=== PATIENT | male | born 1945 | race Caucasian/White ===

== ENCOUNTER 2018-04-07 09:43 | Emergency (ER) | payer OTHER ==
[2018-04-07] MEDS ORDERED: MORPHINE SULFATE INJ 10 MG/ML VIAL IV ONE (10:05)
--- NOTE | 2018-04-07 10:21 | ED.PDOC ---
History of Present Illness - General Chief Complaint: GI Problem Stated Complaint: severe heartburn Time Seen by Provider: 04/07/18 10:02 Information Source: patient, family Exam Limitations: no limitations - History of Present Illness Initial Comments: patient comes in today with severe chest pain and retching since yesterday at 3 PM. Patient stated that he took a bite of brisket and felt like it had gotten stuck and then passed further distally into his stomach area. However, he could not stop with nausea and severe chest pain. The pain is a 10 out of 10, burning, and in the substernal area. Patient states he cannot pass anything without having to retch and throw up clear fluid and occasional bile. The only thing that has relieved the chest pain is when he is able to have a small amount of bile-like emesis. Patient has some shortness of breath associated with the chest pain but no cough or wheezing. Patient denies any abdominal pain. He has had this happen once before about 6 months ago but that passed on its own after about 15 minutes. Patient has been uppermost the night trying to retch up whenever it is it's causing the discomfort. Patient has no cardiac history but does have hypertension and gout. Patient has been able to pass Tums , water, or any food without severe discomfort and pain. patient has noted several month history of change in his taste. He states even when eating sweet fruit still have a bitter or metallic taste in his mouth. He does not normally have a difficult time swallowing and he denies any chronic reflux. Patient does often have episodes of hiccups that are concerning to his . Patient does drink daily 6 beers and 2 drinks of hard alcohol a day. Abdominal Pain Onset Location: other - substernal Pain Radiation: no radiation Quality: severe, aching, burning Timing/Duration: 7-24 hours Improving Factors: other - emesis of small amounts of bile Worsening Factors: eating Associated Symptoms: heartburn, nausea/vomiting Review of Systems - Review of Systems Constitutional: States: no symptoms reported. Denies: chills, diaphoresis, fever EENTM: States: no symptoms reported. Denies: eye pain, blurred vision, tearing , ear pain, ear discharge, nose pain, throat pain Respiratory: States: short of breath. Denies: orthopnea, wheezing Cardiology: States: chest pain. Denies: edema, palpitations, syncope Gastrointestinal/Abdominal: States: nausea, vomiting. Denies: abdominal pain, constipation, diarrhea Genitourinary: States: no symptoms reported Musculoskeletal: States: no symptoms reported Skin: States: no symptoms reported Past Medical History (General) - Patient Medical History Hx Stroke: No Hx of COPD: No Hx Congestive Heart Failure: No Hx Hypertension: Yes Hx Diabetes: No Surgical History: appendectomy - Social History Hx Alcohol Use: Yes Family Medical History - Family History Mother Family History: No Known Physical Exam - Physical Exam General Appearance: Anxious, Obvious distress Eyes, Ears, Nose, Throat Exam: PERRL/EOMI, normal ENT inspection, TMs normal, pharynx normal Neck: non-tender, full range of motion, supple, normal inspection Respiratory: chest non-tender, lungs clear, normal breath sounds, no respiratory distress Cardiovascular/Chest: normal peripheral pulses, regular rate, rhythm, no edema, no gallop, no JVD, no murmur, other - no subcutaneous ephysema Peripheral Pulses: No deficit Gastrointestinal/Abdominal: normal bowel sounds, non tender, soft, no organomegaly, no pulsatile mass Neurologic: alert, oriented x 3 Skin Exam: normal color Progress - Progress Progress: 04/07/18 10:52 04/07/18 10:12 CARDIAC ENZYME GROUP Stat COMPLETE METABOLIC PROFILE Stat 04/07/18 10:15 EKG STAT 04/07/18 10:51 BOLUS Sodium Chloride 0.9% 1000ML [Ns 1000 ml] 1,000 ml IVS ONCE Laboratory Results WBC 6.6 K/mm3 (4.8-10.8) 04/07/18 10:05 RBC 5.03 M/mm3 (4.70-6.10) 04/07/18 10:05 Hgb 17.6 gm/dL (14.0-18.0) 04/07/18 10:05 Hct 50.1 % (42.0-52.0) 04/07/18 10:05 MCV 99.6 fl (80.0-94.0) H 04/07/18 10:05 MCH 35.1 pg (27.0-31.0) H 04/07/18 10:05 MCHC 35.2 g/dL (33.0-37.0) 04/07/18 10:05 RDW 13.4 % (11.5-14.5) 04/07/18 10:05 Plt Count 183 K/mm3 (130-400) 04/07/18 10:05 MPV 7.9 fl (7.40-10.4) 04/07/18 10:05 Absolute Neuts (auto) 4.40 K/uL (1.8-6.8) 04/07/18 10:05 Absolute Lymphs (auto) 1.40 K/uL (1.0-3.4) 04/07/18 10:05 Absolute Monos (auto) 0.80 K/uL (0.2-0.8) 04/07/18 10:05 Absolute Eos (auto) 0.00 K/uL (0.0-0.4) 04/07/18 10:05 Absolute Basos (auto) 0.10 K/uL (0.0-0.1) 04/07/18 10:05 Neutrophils % 65.7 % (42.0-78.0) 04/07/18 10:05 Lymphocytes % 21.5 % (20.0-50.0) 04/07/18 10:05 Monocytes % 11.5 % (2.0-9.0) H 04/07/18 10:05 Eosinophils % 0.5 % (1.0-5.0) L 04/07/18 10:05 Basophils % 0.8 % (0.0-2.0) 04/07/18 10:05 PT 11.8 SECONDS (9.4-12.5) 04/07/18 10:12 INR 1.020 04/07/18 10:12 PTT (SP) 29.2 SECONDS (25.1-36.5) 04/07/18 10:12 Sodium 142 mmol/L (135-145) 04/07/18 10:12 Potassium 3.4 mmol/L (3.6-5.0) L 04/07/18 10:12 Chloride 106 mmol/L (101-111) 04/07/18 10:12 Carbon Dioxide 27 mmol/L (21-31) 04/07/18 10:12 Anion Gap 12.4 (12-18) 04/07/18 10:12 BUN 10 mg/dL (7-18) 04/07/18 10:12 Creatinine 0.74 mg/dL (0.6-1.3) 04/07/18 10:12 BUN/Creatinine Ratio 13.5 (10-20) 04/07/18 10:12 Random Glucose 116 mg/dL (70-105) H 04/07/18 10:12 Serum Osmolality 283.1 mOsm/L (275-295) 04/07/18 10:12 Calcium 9.6 mg/dL (8.4-10.2) 04/07/18 10:12 Total Bilirubin 1.6 mg/dL (0.2-1.0) H 04/07/18 10:12 AST 53 IU/L (10-42) H 04/07/18 10:12 ALT 49 IU/L (10-60) 04/07/18 10:12 Alkaline Phosphatase 64 IU/L (42-121) 04/07/18 10:12 Creatine Kinase 99 IU/L (38-174) 04/07/18 10:12 Serum Total Protein 8.1 gm/dL (6.4-8.2) 04/07/18 10:12 Albumin 4.4 g/dl (3.2-5.5) 04/07/18 10:12 Globulin 3.7 gm/dL (2.3-3.5) H 04/07/18 10:12 Albumin/Globulin Ratio 1.2 (1.1-1.9) 04/07/18 10:12 Patient Name: HECTOR SEXTON Gender: Male Date of : 1945 Referring Physician: ROLAND RUSH Organization: [facility] Accession Number: [id number] Requested Date: April 07, 2018 10:05 Report Status: Final Requested Procedure: 1 Procedure Description: Chest w/o Contrast Modality: CT Findings Reporting MD: J Carlos Chung Fellow MD: Not available Dictation Time: Yarn Inspector: Not available Transformer Molder Date: EXAM DESCRIPTION: Chest w/o Contrast CLINICAL HISTORY: 72 years, Male, chest pain after eating/?esophageal tear rupture COMPARISON: None TECHNIQUE: Thin-section noncontrast axial CT images are obtained according to our protocol. Reconstructed MPR images are created and reviewed as well. FINDINGS: Lungs: No consolidating pulmonary infiltrate or groundglass infiltrate. Tiny nodule in the left lower lobe measures 4 mm and may be a small granuloma. Follow-up as per recommendations below. Mediastinum: Lymph nodes are normal in size. Filled distended esophagus is seen. No mucosal thickening or esophageal mass is identified. Correlate with endoscopic findings. No mediastinal fluid collection or hematoma to suggest esophageal rupture. Slight increased density of the mucosal surface of the esophagus is seen in the lower portion just above the GE junction. No definite foreign body. Normal vascular contours. Heart size is normal with no pericardial effusion. Chest wall/axilla: No mass or adenopathy. Lower neck/supraclavicular: No mass or adenopathy. Upper abdomen: Diffuse hepatic steatosis is present. Otherwise unremarkable upper abdominal viscera. IMPRESSION: Fluid-filled esophagus. No obstructing lesion is identified. Correlate with endoscopic findings if indicated. Left lower lobe nodule measures 4 mm. Follow-up as per recommendations below. 2017 Fleischner Society Recommendations for Single Solid Lung Nodule Follow-Up based on size (average of long- and short-axis [facility] [address] [place] [address], [address] [place] [address] T [phone] F [phone] [email or web address] - Report exported on Apr 07, 2018 10:53:28 -[id number] - Page 2 of 2 diameters) <6 mm Low-Risk Patient: No routine follow-up <6 mm High-Risk Patient: Optional CT at 12 months This exam was performed according to our departmental dose-optimization program, which includes automated exposure control, adjustment of the mA and/or kV according to patient size and/or use of iterative reconstruction techn discussed results with patient. he was aware of the granuloma and it has been monitored already with no change. Will give IV glucagon and IV fluid at this time to try and pass suspected food bolus. 04/07/18 11:47 Patient did not improve with IV medication. We have called [facility] for transfer for GI consult Departure - Departure Clinical Impression: Bolus impaction of digestive tract Disposition: Transfer to Hospital Condition: Fair Departure Forms: ED Discharge - Pt. Copy, Patient Portal Self Enrollment Transfer to Outside Facility - Transfer Information Accepting Provider:: Dr. Olivera Accepting Facility: [facility] Reason for Transfer: required specialist not available
--- NOTE | 2018-04-07 10:33 | RAD ---
EXAM DESCRIPTION: Chest,1 View CLINICAL HISTORY: 72 years Male, chest pain COMPARISON: None. TECHNIQUE: AP portable chest. FINDINGS: Heart size is normal with normal pulmonary vascularity. No consolidating infiltrate. No pulmonary mass or worrisome nodule. No pneumothorax or pleural effusion. Bones are unremarkable. IMPRESSION: No acute process is identified in the chest. Electronically signed by: J Carlos Chung MD 04/07/2018 10:31 AM CDT
--- NOTE | 2018-04-07 10:44 | CT ---
EXAM DESCRIPTION: Chest w/o Contrast CLINICAL HISTORY: 72 years, Male, chest pain after eating/?esophageal tear rupture COMPARISON: None TECHNIQUE: Thin-section noncontrast axial CT images are obtained according to our protocol. Reconstructed MPR images are created and reviewed as well. FINDINGS: Lungs: No consolidating pulmonary infiltrate or groundglass infiltrate. Tiny nodule in the left lower lobe measures 4 mm and may be a small granuloma. Follow-up as per recommendations below. Mediastinum: Lymph nodes are normal in size. Filled distended esophagus is seen. No mucosal thickening or esophageal mass is identified. Correlate with endoscopic findings. No mediastinal fluid collection or hematoma to suggest esophageal rupture. Slight increased density of the mucosal surface of the esophagus is seen in the lower portion just above the GE junction. No definite foreign body. Normal vascular contours. Heart size is normal with no pericardial effusion. Chest wall/axilla: No mass or adenopathy. Lower neck/supraclavicular: No mass or adenopathy. Upper abdomen: Diffuse hepatic steatosis is present. Otherwise unremarkable upper abdominal viscera. IMPRESSION: Fluid-filled esophagus. No obstructing lesion is identified. Correlate with endoscopic findings if indicated. Left lower lobe nodule measures 4 mm. Follow-up as per recommendations below. 2017 Fleischner Society Recommendations for Single Solid Lung Nodule Follow-Up based on size (average of long- and short-axis diameters) <6 mm Low-Risk Patient: No routine follow-up <6 mm High-Risk Patient: Optional CT at 12 months This exam was performed according to our departmental dose-optimization program, which includes automated exposure control, adjustment of the mA and/or kV according to patient size and/or use of iterative reconstruction technique. Electronically signed by: J Carlos Chung MD 04/07/2018 10:42 AM CDT
[2018-04-07] MEDS ORDERED: GLUCAGON INJ 1 MG VIAL IV ONE (10:51)
[2018-04-07] MEDS ORDERED: SODIUM CHLORIDE 0.9% 1000ML 1,000 ML IVS ONE (10:51)
[2018-04-07 12:17] VITALS: BP 175/83; TEMP 97.6; O2SAT 95
== END 2018-04-07 12:16 | disposition short-term general hospital (02) ==
LOC: ER 09:43
DX: T17.920A Food in respiratory tract, part unspecified causing asphyxiation, initial encounter (principal); I10 Essential (primary) hypertension; M10.9 Gout, unspecified; X58.XXXA Exposure to other specified factors, initial encounter
CPT/HCPCS: 36415; 71045; 71250; 80053; 82550; 82553; 84484; 85025; 85610; 85730; 93005; J1610; J2270; J7030

== ENCOUNTER 2019-10-01 11:04 | Emergency (ER) | payer OTHER ==
[2019-10-01 11:24] VITALS: TEMP 97.7
[2019-10-01] MEDS ORDERED: ONDANSETRON INJ 4 MG/2 ML VIAL IV ONE (11:34)
[2019-10-01] MEDS ORDERED: SODIUM CHLORIDE 0.9% (FLUSH) 10 ML SYG IV PRN (11:34)
[2019-10-01] MEDS ORDERED: SODIUM CHLORIDE 0.9% 1000ML 1,000 ML IVS PRN (11:34)
[2019-10-01] MEDS ORDERED: MORPHINE SULFATE INJ 10 MG/ML VIAL IV ONE (11:37)
--- NOTE | 2019-10-01 11:39 | ED.PDOC ---
History of Present Illness - General Chief Complaint: Abdominal Pain Stated Complaint: LLQ abd pain Time Seen by Provider: 10/01/19 11:09 - History of Present Illness Initial Comments: 74 male with history of diverticulitis, presents with progressive left lower quadrant abdominal pain for 2 days, no vomiting, no bowel movement today. Pain is similar to previous infection. He has never had surgery, no recent colonoscopy, although diverticulosis seen on colonoscopy approximately 5 years ago. Allergies/Adverse Reactions: Allergies NO KNOWN ALLERGY Allergy (Verified 02/21/19 10:19) Home Medications: Ambulatory Orders Allopurinol [Zyloprim] 100 mg PO BID 02/21/19 Amlodipine Besylate 10 mg PO DAILY 10/01/19 Amoxicillin & Pot Clavulanate [Augmentin Tab] 875 mg PO BID #20 tab 10/01/19 Docusate Sodium [Colace Cap] 100 mg PO BID #20 cap 10/01/19 Lisinopril 10 mg PO BID 10/01/19 Ondansetron Odt [Zofran ODT] 4 mg PO Q6H PRN #15 tab 10/01/19 Polyethylene Glycol 3350 [Miralax] 17 gm PO BID 20 Days #20 pckt 10/01/19 Tamsulosin [Flomax] 0.4 mg PO QD 10/01/19 Tramadol HCl [Ultram] 50 mg PO Q6HR PRN #20 tab 10/01/19 metroNIDAZOLE [Flagyl] 500 mg PO BID #20 tab 10/01/19 Review of Systems - Review of Systems Review of Systems: 10/01/19 12:22 General: Denies generalized weakness, fever, arthralgia/myalgia HEENT: Denies sore throat, rhinorrhea Cardiovascular: Denies chest pain, palpitations Respiratory: Denies SOB, cough Gastrointestinal: has abdominal pain, no vomiting, diarrhea : Denies dysuria, frequency Musculoskeletal: Denies extremity pain, extremity swelling Integument: Denies rash, itching Neuro: Denies focal weakness or numbness Psych: Denies depression, hallucinations. Past Medical History (General) - Patient Medical History Hx Stroke: No Hx of COPD: No Hx Cardiac Disorders: No Hx Congestive Heart Failure: No Hx Hypertension: Yes Hx Diabetes: No Hx Cancer: No Surgical History: appendectomy - Vaccination History Hx Tetanus, Diphtheria Vaccination: Yes Hx Influenza Vaccination: No Hx Pneumococcal Vaccination: Yes - Social History Hx Tobacco Use: Yes Hx Alcohol Use: Yes Hx Substance Use: No Hx Substance Use Treatment: No Hx Depression: No - Female History Patient : No Family Medical History - Family History Mother Family History: No Known Physical Exam - Physical Exam Comments: General Appearance: Patient is awake and alert. Skin: Warm and dry. No diaphoresis. No rash or other lesions. Head: Normocephalic/atraumatic. Eyes: PERRL, lids, conjunctiva and sclera unremarkable. EOMI intact. ENT: No nasal discharge. Oropharynx. Without erythema, exudate, lesions. Moist mucous membranes. Neck: Supple. No LAD. No tenderness. No JVD noted. Respiratory: Normal rate and effort. Breath sounds clear bilaterally. Cardiovascular: Regular rate. Heart sounds normal. No murmur. GI: Abdomen soft, non-distended and tender in LLQ. No rebound/guarding. Bowel sounds normal. Back: No tenderness Musculoskeletal: Extremities- Normal range of motion. No effusion, cyanosis, edema. Neurological: Alert. No facial palsy. Speech clear. Gag intact. No motor deficit, str symmetric. No sensory deficit. Progress - Progress Progress: 10/01/19 14:19 Patient feels better after meds, iv abx given in ED.. VS, exam remain reassuring. Labs are without acute abnormality, imaging w divertic, no abscess/ perf. I have discussed findings, diff dx, plan of care, need for follow-up, and reasons to return to the ED. Safety Stop (Diagnostic Time-Out): Tachycardia: No Diagnostic Studies: Reviewed Diagnostic Certainty: moderate Patient/family feels safe with discharge: Yes - Results/Orders Results/Orders: Vital Signs - 24 hr 10/01/19 11:16 Temperature 97.7 F Pulse Rate [ 93 H Left Brachial] Respiratory 16 Rate Blood Pressure 135/74 [Left Arm] O2 Sat by Pulse 98 Oximetry 10/01/19 11:34 IV Care:Saline Lock per Protoc QSHIFT Sodium Chloride 0.9% (Flush) [Saline Flush Syringe] 10 ml IV PRN PRN Sodium Chloride 0.9% 1000ML [Ns 1000 ml] 1,000 ml IVS .QD URINALYSIS Stat 10/01/19 11:35 Abdomen/Pelvis w/Contrast [CT] Stat 10/01/19 11:36 Hold Metformin x 48Hrs [id number] Laboratory Results WBC 10.3 K/mm3 (4.8-10.8) 10/01/19 11:34 RBC 5.41 M/mm3 (4.70-6.10) 10/01/19 11:34 Hgb 18.8 gm/dL (14.0-18.0) H 10/01/19 11:34 Hct 53.9 % (42.0-52.0) H 10/01/19 11:34 MCV 99.6 fl (80.0-94.0) H 10/01/19 11:34 MCH 34.7 pg (27.0-31.0) H 10/01/19 11:34 MCHC 34.8 g/dL (33.0-37.0) 10/01/19 11:34 RDW 12.2 % (11.5-14.5) 10/01/19 11:34 Plt Count 235 K/mm3 (130-400) 10/01/19 11:34 MPV 7.8 fl (7.40-10.4) 10/01/19 11:34 Absolute Neuts (auto) 7.70 K/uL (1.8-6.8) H 10/01/19 11:34 Absolute Lymphs (auto) 1.60 K/uL (1.0-3.4) 10/01/19 11:34 Absolute Monos (auto) 0.90 K/uL (0.2-0.8) H 10/01/19 11:34 Absolute Eos (auto) 0.10 K/uL (0.0-0.4) 10/01/19 11:34 Absolute Basos (auto) 0.10 K/uL (0.0-0.1) 10/01/19 11:34 Neutrophils % 74.8 % (42.0-78.0) 10/01/19 11:34 Lymphocytes % 15.2 % (20.0-50.0) L 10/01/19 11:34 Monocytes % 8.8 % (2.0-9.0) 10/01/19 11:34 Eosinophils % 0.6 % (1.0-5.0) L 10/01/19 11:34 Basophils % 0.6 % (0.0-2.0) 10/01/19 11:34 Sodium 133 mmol/L (135-145) L 10/01/19 11:34 Potassium 4.3 mmol/L (3.6-5.0) 10/01/19 11:34 Chloride 97 mmol/L (101-111) L 10/01/19 11:34 Carbon Dioxide 26 mmol/L (21-31) 10/01/19 11:34 Anion Gap 14.3 (12-18) 10/01/19 11:34 BUN 7 mg/dL (7-18) 10/01/19 11:34 Creatinine 0.77 mg/dL (0.6-1.3) 10/01/19 11:34 BUN/Creatinine Ratio 9.1 (10-20) L 10/01/19 11:34 Random Glucose 106 mg/dL (70-105) H 10/01/19 11:34 Serum Osmolality 264.8 mOsm/L (275-295) L 10/01/19 11:34 Calcium 9.3 mg/dL (8.4-10.2) 10/01/19 11:34 Total Bilirubin 1.3 mg/dL (0.2-1.0) H 10/01/19 11:35 Direct Bilirubin 0.3 mg/dL (0-0.2) H 10/01/19 11:35 Indirect Bilirubin 1.0 mg/dL (0.2-0.8) H 10/01/19 11:35 AST 32 IU/L (10-42) 10/01/19 11:35 ALT 31 IU/L (10-60) 10/01/19 11:35 Alkaline Phosphatase 56 IU/L (42-121) 10/01/19 11:35 Serum Total Protein 8.2 gm/dL (6.4-8.2) 10/01/19 11:35 Albumin 4.3 g/dl (3.2-5.5) 10/01/19 11:35 CT abd pelvic. desc/sigmoid diverticulitis, no perf/abscess, mod inflammation - EKG/XRAY/CT CT: abd/pelvis CT Ordered: Yes - Consult/PCP Consult Reason/Comments: Dr. Nichols, will see in followup. Departure - Departure Clinical Impression: Diverticulitis large intestine Time of Disposition: 14:25 Disposition: Discharge to Home or Self Care Condition: Good Departure Forms: ED Discharge - Pt. Copy, Patient Portal Self Enrollment Instructions: Diverticulitis (DC) Diet: other - high fiber diet Activity: walking as tolerated Referrals: Myra Ray FNP [Primary Care Provider] - 1-2 Weeks Rad Nichols MD [Active Staff] - 1-5 Days Prescriptions: Tramadol HCl [Ultram] 50 mg PO Q6HR PRN #20 tab PRN Reason: Pain Amoxicillin & Pot Clavulanate [Augmentin Tab] 875 mg PO BID #20 tab Docusate Sodium [Colace Cap] 100 mg PO BID #20 cap metroNIDAZOLE [Flagyl] 500 mg PO BID #20 tab Ondansetron Odt [Zofran ODT] 4 mg PO Q6H PRN #15 tab PRN Reason: Nausea Polyethylene Glycol 3350 [Miralax] 17 gm PO BID 20 Days #20 pckt Home Medications: Ambulatory Orders Allopurinol [Zyloprim] 100 mg PO BID 02/21/19 Amlodipine Besylate 10 mg PO DAILY 10/01/19 Amoxicillin & Pot Clavulanate [Augmentin Tab] 875 mg PO BID #20 tab 10/01/19 Docusate Sodium [Colace Cap] 100 mg PO BID #20 cap 10/01/19 Lisinopril 10 mg PO BID 10/01/19 Ondansetron Odt [Zofran ODT] 4 mg PO Q6H PRN #15 tab 10/01/19 Polyethylene Glycol 3350 [Miralax] 17 gm PO BID 20 Days #20 pckt 10/01/19 Tamsulosin [Flomax] 0.4 mg PO QD 10/01/19 Tramadol HCl [Ultram] 50 mg PO Q6HR PRN #20 tab 10/01/19 metroNIDAZOLE [Flagyl] 500 mg PO BID #20 tab 10/01/19 Comments: Renzo Thompson MD Emergency Medicine #[id number]
--- NOTE | 2019-10-01 13:34 | CT ---
PROCEDURE: Abdomen/Pelvis w/Contrast CLINICAL HISTORY: LLQ, hx of tics, eval abscess TECHNIQUE: Contiguous axial images obtained through the abdomen and pelvis following the uneventful administration of IV contrast. Coronal and sagittal reformatted images were provided. This exam was performed according to our departmental dose-optimization program, which includes automated exposure control, adjustment of the mA and/or kV according to patient size and/or use of iterative reconstruction technique. COMPARISON: 02/21/2019 FINDINGS: Lung bases: Bibasilar subsegmental atelectasis/pleural parenchymal scar. The heart is mildly enlarged. Coronary artery calcification. Liver: The liver is mildly diffusely low in density compatible with steatosis. Gallbladder and biliary system: Unremarkable Pancreas: Unremarkable Spleen: Unremarkable Adrenals: Unremarkable Kidneys: Normal renal cortical enhancement. Small bilateral renal calculi. No hydronephrosis. Bowel: Colonic diverticula are present. Focally inflamed diverticulum with mild to moderate surrounding inflammatory change at the descending sigmoid colon junction. No obstruction. Appendix: Pericecal surgical clips suggesting prior appendectomy. No findings to suggest acute appendicitis. Urinary bladder: Unremarkable Reproductive: The prostate is enlarged. Lymph nodes: Top normal portal hepatic and portacaval lymph nodes again demonstrated. Peritoneum: No focal fluid collection. No free air. Vessels: No abdominal aortic aneurysm. Abdominal wall: Small fat-containing periumbilical hernia without significant interval change. Bones: Multilevel spondylosis. Remote mid to lower thoracic compression deformities again demonstrated. IMPRESSION: 1. Findings compatible with acute diverticulitis at the descending sigmoid colon junction. Mild to moderate surrounding inflammation. No extraluminal gas or discrete fluid collection. 2. Other findings as above. Electronically signed by: Darwin Alonzo MD 10/01/2019 1:33 PM [facility]
[2019-10-01] MEDS ORDERED: cefTRIAXone SODIUM 1 GM in SODIUM CHL 0.9% 50ML MIN-BAG+ 50 ML IVPB ONE (13:51)
[2019-10-01] MEDS ORDERED: HYDROcodone 5MG/APAP 325MG 1 EA TAB PO ONE ×2 (13:52→14:02)
[2019-10-01] MEDS ORDERED: cefTRIAXone SODIUM 1 GM VIAL ONE (14:01)
[2019-10-01] MEDS ORDERED: SODIUM CHL 0.9% 50ML MIN-BAG+ 50 ML IVPB ONE (14:02)
[2019-10-01 14:57] VITALS: BP 107/68; O2SAT 93
== END 2019-10-01 14:57 | disposition home or self-care (01) ==
LOC: ER 11:04
DX: K57.32 Diverticulitis of large intestine without perforation or abscess without bleeding (principal); I10 Essential (primary) hypertension; Z87.891 Personal history of nicotine dependence; Z79.899 Other long term (current) drug therapy
CPT/HCPCS: 36415; 74177; 80048; 80076; 81001; 85025; J0696; J2270; J2405; J7030; J7050